=== PATIENT | male | born 1975 | race Native Hawaiian/Other Pacific Islander ===

== ENCOUNTER 2017-07-19 12:44 | Emergency (ER) | payer OTHER, SELFPAY ==
[2017-07-19 14:05] VITALS: BP 159/105; PULSE 91; RESP 20; TEMP 36.8; O2SAT 99; BMI 25.0
--- NOTE | 2017-07-19 15:15 | PC.NURSE ---
Lt lower rib pain worsening x2 days after a fall during which he landed on a metal support beam during basketball, and a large adult man fell on top of him. no edema/contusion/deformity present, splinting with deep breathing, abd soft/nontender, tender over lt lower rib, lung sounds clear/equal
--- NOTE | 2017-07-19 15:15 | ED.BACK ---
HPI - Back Pain/Injury <PITA Moy - Last Filed: 07/19/17 19:38> General Chief Complaint: Back Pain/Injury Stated Complaint: LANDED ON LEFT BACK RIB ON SUPPORT BEAM,HURTS Time Seen by Provider: 07/19/17 15:15 Source: patient Mode of arrival: ambulatory Limitations: no limitations History of Present Illness HPI Narrative: Patient presents after landing on a support beam for a basketball hoop on Tuesday. Afterwards a 200 lb man landed on him as well, causing pain to his left ribs. He states the next day his pain was worse, and now hurts to move or cough. His pain is localized to his left ribs. He denies any neck pain, back pain, abdominal pain. He has not taken anything for the pain at home. He has occasionally used ice. Related Data Home Medications Medication Instructions Recorded Confirmed atorvastatin 10 mg PO DAILY 07/19/17 07/19/17 bupropion HCl 300 mg PO QPM 07/19/17 07/19/17 cyclobenzaprine 10 mg PO DAILY 07/19/17 07/19/17 lisinopril 40 mg PO DAILY 07/19/17 07/19/17 sitagliptin-metformin [Janumet XR] 1 tab PO BID 07/19/17 07/19/17 Previous Rx's Medication Instructions Recorded hydrocodone-acetaminophen [Vicodin] 1 tab PO Q4-6H PRN #10 tab 07/19/17 Allergies Allergy/AdvReac Type Severity Reaction Status Date / Time No Known Drug Allergies Allergy Verified 07/19/17 14:17 Review of Systems <JESSICA Moy - Last Filed: 07/19/17 19:38> Review of Systems GENERAL: Denies chills, fatigue, malaise, fever, sweats. HEENT: Denies sinus pain, ear pain, sore throat, difficulty swallowing, dizziness. RESPIRATORY: Denies dyspnea, cough, wheezing, hemoptysis, sputum. CARDIOVASCULAR: Denies chest pain, palpitations, orthopnea, edema, GASTROINTESTINAL: Denies nausea, vomiting, abdominal pain, diarrhea, constipation, melena. : Denies dysuria, frequency, incontinence, hematuria, urinary retention. MUSCULOSKELETAL: See HPI SKIN: Denies rash, skin lesions, or other NEUROLOGIC: Denies weakness, headache, numbness, change in speech, confusion, seizures, incoordination. PSYCHIATRIC: No concerning psychosocial issues. 12 point review of systems is negative except for those stated above Exam <KEILY Moy-BC - Last Filed: 07/19/17 19:38> Narrative Exam Narrative: GENERAL: This is a well-nourished, well-developed patient, lying in bed. HEAD: Atraumatic. Normocephalic. No temporal or scalp tenderness. EYES: Pupils equal round and reactive. Extraocular motions intact. No scleral icterus. No injection or drainage. ENT: Nose without bleeding, purulent drainage or septal hematoma. Throat without erythema, tonsillar hypertrophy or exudate. Uvula midline. Airway patent. NECK: Trachea midline. No JVD or lymphadenopathy. Supple, nontender, no meningeal signs. CARDIOVASCULAR: Regular rate and rhythm without murmurs, gallops, or rubs. RESPIRATORY: Clear to auscultation. Breath sounds equal bilaterally. No wheezes, rales, or rhonchi. GASTROINTESTINAL: Abdomen soft, non-tender, nondistended. No hepato-splenomegaly, or palpable masses. No guarding. EXTREMITIES: No clubbing, cyanosis, or edema. No joint tenderness, effusion, or edema noted. BACK: Nontender without deformity or crepitance. No flank tenderness. Does complain of pain upon lateral compression of ribs at left lower ribs. Denies pain on anterior posterior compression of the ribs. Does complain of pain on palpation of left lower ribs. NEURO: AOx3. Moving cautiously SKIN: No rash or erythema. No ecchymosis or erythema left ribs. Skin is intact. Initial Vital Signs Initial Vital Signs: Vital Signs Temperature 98.3 F 07/19/17 14:05 Pulse Rate 91 H 07/19/17 14:05 Respiratory Rate 20 07/19/17 14:05 Blood Pressure 159/105 H 07/19/17 14:05 Pulse Oximetry 99 07/19/17 14:05 <Lesley Martinez DO - Last Filed: 07/20/17 07:29> Initial Vital Signs Initial Vital Signs: Vital Signs Temperature 98.3 F 07/19/17 14:05 Pulse Rate 91 H 07/19/17 14:05 Respiratory Rate 20 07/19/17 14:05 Blood Pressure 159/105 H 07/19/17 14:05 Pulse Oximetry 99 07/19/17 14:05 Course <PITA Moy - Last Filed: 07/19/17 19:38> Hospital Course: Patient presented with left rib pain after being crush during a basketball game. He was medicated with 60 mg of IM Toradol. X-rays were taken of his ribs and showed a slightly displaced fracture of the left 10th rib.. Toradol had good effect on his pain and he stated comfort after the administration. Upon discharge he and his mobile lounge driver or operator had no questions or concerns. Discussed at length with patient the need for pain control, taking deep breaths to prevent pneumonia. Also suggested rest to not worsen the fracture. Discussed following up primary care provider if needed. Orders Ordered: Discontinued Medications Ketorolac Tromethamine (Toradol) 30 mg IM NOW ONE Stop: 07/19/17 15:18 Last Admin: 07/19/17 15:27 Dose: 30 mg Vital Signs - 8 hr 07/19/17 14:05 07/19/17 16:41 Temperature 98.3 F Pulse Rate 91 H 88 Respiratory Rate 20 18 Blood Pressure 159/105 H 146/92 H Pulse Oximetry 99 98 <Lesley Martinez DO - Last Filed: 07/20/17 07:29> Orders Ordered: Discontinued Medications Ketorolac Tromethamine (Toradol) 30 mg IM NOW ONE Stop: 07/19/17 15:18 Last Admin: 07/19/17 15:27 Dose: 30 mg Vital Signs - 8 hr 07/19/17 14:05 07/19/17 16:41 Temperature 98.3 F Pulse Rate 91 H 88 Respiratory Rate 20 18 Blood Pressure 159/105 H 146/92 H Pulse Oximetry 99 98 MDM - Back Pain/Injury <PITA Moy - Last Filed: 07/19/17 19:38> Imaging Data Chest x-ray: Radiologist's impression: [address] [address] XRay Report Signed Patient: Alireza Cheng MR#: [id number] : 1975 Acct:[id number] Age/Sex: 41 / M Date of Service: 07/19/17 Loc: ED Accession Number: [id number] Procedure: XR ribs LT min 3V w CXR1V Ordering Provider: Aliya Turner-BC PROCEDURE: XR RIBS LT MIN 3V W CXR1V INDICATIONS: 41 year-old male with left rib pain after fall. TECHNIQUE: 2 views of the left ribs were acquired, along with a single view chest. COMPARISON: None. FINDINGS: Skin marker denotes the site of clinical concern. Surgical changes and devices: None. Bones and chest wall: There is minimally displaced fracture involving the anterolateral left 10th rib. No suspicious bony lesions. Overlying soft tissues appear unremarkable. Lungs and pleura: No pleural effusions or pneumothorax. Lungs appear clear. Mediastinum: Mediastinal contours appear normal. Heart size is normal. IMPRESSION: Minimally displaced fracture involving the anterolateral left 10th rib. No hemothorax or pneumothorax. Dictated by: Juvencio Chaves M.D. on 07/19/2017 at 15:54 Approved by: Juvencio Chaves M.D. on 07/19/2017 at 15:55 MDM Narrative Medical decision making narrative: Patient presents after falling on to support beam with ribs. Exam is consistent with rib fracture. X-ray shows slightly displaced left 10th rib fracture. Discussed at length follow up with primary care as well as pain control. Small prescription of Vicodin given for pain control. Discussed at length return precautions of chest pain, shortness of breath, immediate concerns. Patient had no questions or concerns upon discharge and agreed with plan of care. Discharge Plan Departure Patient Disposition: Home, Self-Care Clinical Impression: Closed rib fracture Discharge Date/Time: 07/19/17 16:41 Interventions: ED Discharge Assessment Last Done: 07/19/17 16:41 Instructions: DI for Rib Fracture Activity Restrictions/Additional Instructions: You fractured one of ribs today. I have given you some pain medication to take at home. These can take a long time to heal and I would like you to avoid contact sports for now. I do not want you to break a rib any further. I want she did continue to take ibuprofen if needed. I want you to keep taking deep breaths so that you do not developed a pneumonia. Follow up with her primary care provider if needed or come back to the emergency department for any acute shortness of breath or chest pain. There is Tylenol in the pain medication that I gave you, so be sure not to take over 3000 mg of that per day. Please do not take ibuprofen for 6-8 hours after your pain shot that you received in the emergency department Prescriptions: New hydrocodone-acetaminophen [Vicodin] 5-300 mg tablet 1 tab PO Q4-6H PRN (Reason: pain) Qty: 10 RF: 0 No Action cyclobenzaprine 10 mg tablet 10 mg PO DAILY RF: 0 atorvastatin 10 mg tablet 10 mg PO DAILY RF: 0 lisinopril 40 mg tablet 40 mg PO DAILY RF: 0 bupropion HCl 300 mg tablet extended release 24 hr 300 mg PO QPM RF: 0 sitagliptin-metformin [Janumet XR] 50-1,000 mg tablet, ER multiphase 24 hr 1 tab PO BID RF: 0 <Lesley Martinez DO - Last Filed: 07/20/17 07:29> Cosign ED Attending Noe Attestation: I was immediately available in the department for consultation. Documentation has been reviewed. I agree with assessment and plan.
[2017-07-19] MEDS: KETOROLAC 60 MG/2 ML VIAL 30 MG IM (15:27)
--- NOTE | 2017-07-19 15:35 | ED_ITS ---
HPI - Back Pain/Injury <PITA Moy - Last Filed: 07/19/17 19:38> General Chief Complaint: Back Pain/Injury Stated Complaint: LANDED ON LEFT BACK RIB ON SUPPORT BEAM,HURTS Time Seen by Provider: 07/19/17 15:15 Source: patient Mode of arrival: ambulatory Limitations: no limitations History of Present Illness HPI Narrative: Patient presents after landing on a support beam for a basketball hoop on Tuesday. Afterwards a 200 lb man landed on him as well, causing pain to his left ribs. He states the next day his pain was worse, and now hurts to move or cough. His pain is localized to his left ribs. He denies any neck pain, back pain, abdominal pain. He has not taken anything for the pain at home. He has occasionally used ice. Related Data Home Medications Medication Instructions Recorded Confirmed atorvastatin 10 mg PO DAILY 07/19/17 07/19/17 bupropion HCl 300 mg PO QPM 07/19/17 07/19/17 cyclobenzaprine 10 mg PO DAILY 07/19/17 07/19/17 lisinopril 40 mg PO DAILY 07/19/17 07/19/17 sitagliptin-metformin [Janumet XR] 1 tab PO BID 07/19/17 07/19/17 Previous Rx's Medication Instructions Recorded hydrocodone-acetaminophen [Vicodin] 1 tab PO Q4-6H PRN #10 tab 07/19/17 Allergies Allergy/AdvReac Type Severity Reaction Status Date / Time No Known Drug Allergies Allergy Verified 07/19/17 14:17 Review of Systems <JESSICA Moy - Last Filed: 07/19/17 19:38> Review of Systems GENERAL: Denies chills, fatigue, malaise, fever, sweats. HEENT: Denies sinus pain, ear pain, sore throat, difficulty swallowing, dizziness. RESPIRATORY: Denies dyspnea, cough, wheezing, hemoptysis, sputum. CARDIOVASCULAR: Denies chest pain, palpitations, orthopnea, edema, GASTROINTESTINAL: Denies nausea, vomiting, abdominal pain, diarrhea, constipation, melena. : Denies dysuria, frequency, incontinence, hematuria, urinary retention. MUSCULOSKELETAL: See HPI SKIN: Denies rash, skin lesions, or other NEUROLOGIC: Denies weakness, headache, numbness, change in speech, confusion, seizures, incoordination. PSYCHIATRIC: No concerning psychosocial issues. 12 point review of systems is negative except for those stated above Exam <KEILY Moy-BC - Last Filed: 07/19/17 19:38> Narrative Exam Narrative: GENERAL: This is a well-nourished, well-developed patient, lying in bed. HEAD: Atraumatic. Normocephalic. No temporal or scalp tenderness. EYES: Pupils equal round and reactive. Extraocular motions intact. No scleral icterus. No injection or drainage. ENT: Nose without bleeding, purulent drainage or septal hematoma. Throat without erythema, tonsillar hypertrophy or exudate. Uvula midline. Airway patent. NECK: Trachea midline. No JVD or lymphadenopathy. Supple, nontender, no meningeal signs. CARDIOVASCULAR: Regular rate and rhythm without murmurs, gallops, or rubs. RESPIRATORY: Clear to auscultation. Breath sounds equal bilaterally. No wheezes , rales, or rhonchi. GASTROINTESTINAL: Abdomen soft, non-tender, nondistended. No hepato-splenomegaly , or palpable masses. No guarding. EXTREMITIES: No clubbing, cyanosis, or edema. No joint tenderness, effusion, or edema noted. BACK: Nontender without deformity or crepitance. No flank tenderness. Does complain of pain upon lateral compression of ribs at left lower ribs. Denies pain on anterior posterior compression of the ribs. Does complain of pain on palpation of left lower ribs. NEURO: AOx3. Moving cautiously SKIN: No rash or erythema. No ecchymosis or erythema left ribs. Skin is intact. Initial Vital Signs Initial Vital Signs: Vital Signs Temperature 98.3 F 07/19/17 14:05 Pulse Rate 91 H 07/19/17 14:05 Respiratory Rate 20 07/19/17 14:05 Blood Pressure 159/105 H 07/19/17 14:05 Pulse Oximetry 99 07/19/17 14:05 <Lesley Martinez DO - Last Filed: 07/20/17 07:29> Initial Vital Signs Initial Vital Signs: Vital Signs Temperature 98.3 F 07/19/17 14:05 Pulse Rate 91 H 07/19/17 14:05 Respiratory Rate 20 07/19/17 14:05 Blood Pressure 159/105 H 07/19/17 14:05 Pulse Oximetry 99 07/19/17 14:05 Course <PITA Moy - Last Filed: 07/19/17 19:38> Hospital Course: Patient presented with left rib pain after being crush during a basketball game. He was medicated with 60 mg of IM Toradol. X-rays were taken of his ribs and showed a slightly displaced fracture of the left 10th rib.. Toradol had good effect on his pain and he stated comfort after the administration. Upon discharge he and his local truck driver had no questions or concerns. Discussed at length with patient the need for pain control, taking deep breaths to prevent pneumonia. Also suggested rest to not worsen the fracture. Discussed following up primary care provider if needed. Orders Ordered: Discontinued Medications Ketorolac Tromethamine (Toradol) 30 mg IM NOW ONE Stop: 07/19/17 15:18 Last Admin: 07/19/17 15:27 Dose: 30 mg Vital Signs - 8 hr 07/19/17 14:05 07/19/17 16:41 Temperature 98.3 F Pulse Rate 91 H 88 Respiratory Rate 20 18 Blood Pressure 159/105 H 146/92 H Pulse Oximetry 99 98 <Lesley Martinez DO - Last Filed: 07/20/17 07:29> Orders Ordered: Discontinued Medications Ketorolac Tromethamine (Toradol) 30 mg IM NOW ONE Stop: 07/19/17 15:18 Last Admin: 07/19/17 15:27 Dose: 30 mg Vital Signs - 8 hr 07/19/17 14:05 07/19/17 16:41 Temperature 98.3 F Pulse Rate 91 H 88 Respiratory Rate 20 18 Blood Pressure 159/105 H 146/92 H Pulse Oximetry 99 98 MDM - Back Pain/Injury <PITA Moy - Last Filed: 07/19/17 19:38> Imaging Data Chest x-ray: Radiologist's impression: [address] [address] XRay Report Signed Patient: Alireza Cheng MR#: [id number] : 1975 Acct:[id number] Age/Sex: 41 / M Date of Service: 07/19/17 Loc: ED Accession Number: [id number] Procedure: XR ribs LT min 3V w CXR1V Ordering Provider: Aliya Turner-BC PROCEDURE: XR RIBS LT MIN 3V W CXR1V INDICATIONS: 41 year-old male with left rib pain after fall. TECHNIQUE: 2 views of the left ribs were acquired, along with a single view chest. COMPARISON: None. FINDINGS: Skin marker denotes the site of clinical concern. Surgical changes and devices: None. Bones and chest wall: There is minimally displaced fracture involving the anterolateral left 10th rib. No suspicious bony lesions. Overlying soft tissues appear unremarkable. Lungs and pleura: No pleural effusions or pneumothorax. Lungs appear clear. Mediastinum: Mediastinal contours appear normal. Heart size is normal. IMPRESSION: Minimally displaced fracture involving the anterolateral left 10th rib. No hemothorax or pneumothorax. Dictated by: Juvencio Chaves M.D. on 07/19/2017 at 15:54 Approved by: Juvencio Chaves M.D. on 07/19/2017 at 15:55 MDM Narrative Medical decision making narrative: Patient presents after falling on to support beam with ribs. Exam is consistent with rib fracture. X-ray shows slightly displaced left 10th rib fracture. Discussed at length follow up with primary care as well as pain control. Small prescription of Vicodin given for pain control. Discussed at length return precautions of chest pain, shortness of breath, immediate concerns. Patient had no questions or concerns upon discharge and agreed with plan of care. Discharge Plan Departure Patient Disposition: Home, Self-Care Clinical Impression: Closed rib fracture Discharge Date/Time: 07/19/17 16:41 Interventions: ED Discharge Assessment Last Done: 07/19/17 16:41 Instructions: DI for Rib Fracture Activity Restrictions/Additional Instructions: You fractured one of ribs today. I have given you some pain medication to take at home. These can take a long time to heal and I would like you to avoid contact sports for now. I do not want you to break a rib any further. I want she did continue to take ibuprofen if needed. I want you to keep taking deep breaths so that you do not developed a pneumonia. Follow up with her primary care provider if needed or come back to the emergency department for any acute shortness of breath or chest pain. There is Tylenol in the pain medication that I gave you, so be sure not to take over 3000 mg of that per day. Please do not take ibuprofen for 6-8 hours after your pain shot that you received in the emergency department Prescriptions: New hydrocodone-acetaminophen [Vicodin] 5-300 mg tablet 1 tab PO Q4-6H PRN (Reason: pain) Qty: 10 RF: 0 No Action cyclobenzaprine 10 mg tablet 10 mg PO DAILY RF: 0 atorvastatin 10 mg tablet 10 mg PO DAILY RF: 0 lisinopril 40 mg tablet 40 mg PO DAILY RF: 0 bupropion HCl 300 mg tablet extended release 24 hr 300 mg PO QPM RF: 0 sitagliptin-metformin [Janumet XR] 50-1,000 mg tablet, ER multiphase 24 hr 1 tab PO BID RF: 0 <Lesley Martinez DO - Last Filed: 07/20/17 07:29> Cosign ED Attending Noe Attestation: I was immediately available in the department for consultation. Documentation has been reviewed. I agree with assessment and plan.
[2017-07-19 16:41] VITALS: BP 146/92; PULSE 88; RESP 18; O2SAT 98
== END 2017-07-19 16:41 | disposition home or self-care (01) ==
PROVIDERS: Emergency Provider Nurse Practitioner Family
DX: S22.39XA Fracture of one rib, unspecified side, initial encounter for closed fracture (principal); W03.XXXA Other fall on same level due to collision with another person, initial encounter; Y93.67 Activity, basketball
CPT/HCPCS: 71101; 96372; 99282; 99283; J1885